=== PATIENT | male | born 1990 | race Caucasian/White ===

== ENCOUNTER 2018-03-03 13:54 | Emergency (ER) | payer SELFPAY ==
[2018-03-03] MEDS ORDERED: Cyclobenzaprine TAB* 10 MG PO ONE (14:56)
[2018-03-03] MEDS ORDERED: Ketorolac INJ* 60 MG/2 ML VIAL IM ONE (14:56)
--- NOTE | 2018-03-03 14:59 | ED ---
Back Pain - HPI Summary HPI Summary: Patient is a 27 y/o M w/ c/o lower back pain onsetting 1215 today. 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 Patient fell but did not experience head injury, LOC. No back pain prior to today, he did not urinate/have bowel movement during incident. Patient was able to ambulate. Patient reports pain is not severe. On triage, pain is rated 6/10 and nothing is noted to aggravate/alleviate Sx. - History of Current Complaint Chief Complaint: EDAssaulted Stated Complaint: BACK PAIN Time Seen by Provider: 03/03/18 14:41 Hx Obtained From: Patient Onset/Duration: Lasting Hours - onset 121, Still Present Onset/Duration: Started Hours Ago - onset 121 Timing: Constant Back Pain Location: Is Discrete @ - lower back Severity Currently: Moderate - 6/10 Pain Intensity: 6 Pain Scale Used: 0-10 Numeric - 6/10 Aggravating Symptom(s): Nothing Alleviating Symptom(s): Nothing Associated Signs And Symptoms: Positive: Other - NEGATIVE: LOC, head injury, inability to ambulate - Allergies/Home Medications Allergies/Adverse Reactions: Allergies Allergy/AdvReac Type Severity Reaction Status Date / Time No Known Allergies Allergy Verified 03/03/18 15:59 PMH/Surg Hx/FS Hx/Imm Hx Endocrine/Hematology History: Denies: Hx Diabetes Cardiovascular History: Denies: Hx Hypertension Infectious Disease History: No Infectious Disease History: Denies: Traveled Outside the [place] in Last 30 Days - Family History Known Family History: Negative: Hypertension, Diabetes - Social History Alcohol Use: Occasionally Substance Use Type: Reports: None Smoking Status (MU): Never Smoked Tobacco Review of Systems Positive: other - NEGATIVE: involuntary bowel movement or urination Positive: Other - lower back pain Neurological: Other - NEGATIVE: head injury, LOC All Other Systems Reviewed And Are Negative: Yes Physical Exam - Summary Physical Exam Summary: GENERAL: Patient is a well developed and nourished male who is lying comfortable in the stretcher. Patient is not in any acute respiratory distress. HEAD AND FACE: Normocephalic EYES: PERRLA, EOMI x 2. MOUTH: Oropharynx within normal limits. NECK: Supple, trachea is midline, no adenopathy, no JVD, no carotid bruit. CHEST: Symmetric, no tenderness at palpation LUNGS: Clear to auscultation bilaterally. No wheezing or crackles. CVS: Regular rate and rhythm, S1 and S2 present, no murmurs or gallops appreciated. ABDOMEN: Soft, non-tender. Bowel sounds are normal. No abdominal abnormal pulsations. Back: TTP along the paraspinal area in the LS region, 5/5 motor and 2/2 sensation in the lower EXTREMITIES: Full ROM in all major joints, no edema, no cyanosis or clubbing. NEURO: Alert and oriented x 3. No acute neurological deficits. Speech is normal and follows commands. SKIN: Dry and warm Triage Information Reviewed: Yes Vital Signs On Initial Exam: Initial Vitals Temp Pulse Resp BP Pulse Ox 97.7 F 99 14 145/89 94 03/03/18 14:07 03/03/18 14:07 03/03/18 14:07 03/03/18 14:07 03/03/18 14:07 Vital Signs Reviewed: Yes Diagnostics - Vital Signs Vital Signs Temp Pulse Resp BP Pulse Ox 03/03/18 14:07 97.7 F 99 14 145/89 94 - Laboratory Lab Statement: Any lab studies that have been ordered have been reviewed, and results considered in the medical decision making process. - Radiology Lumbar Spine X-Ray Xray Interpretation: Positive (See Comments) Radiology Interpretation Completed By: Radiologist - Right sided pars defect at L4 with mild facet osteoarthritis at L3-L4. This report was reviewed ED physician. Re-Evaluation - Re-Evaluation First Eval Re-Evaluation Time: 16:02 Comment: Discussed results of Lumbar Spine X-ray with patient. Patient will be discharged to home and follow up with PCP. He is hemodynamically stable upon discharge. Strict return precautions given and he will otherwise follow up with his PCP. Back Pain Course/Dx - Course Assessment/Plan: Patient is a 27 y/o M w/ c/o lower back pain onsetting 1215 today. 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 Patient fell but did not experience head injury, LOC. No back pain prior to today, he did not urinate/have bowel movement during incident. Patient was able to ambulate. Patient reports pain is not severe. Physical exam showed no abnormal findings. Lumbar spine X-ray showed Right sided pars defect at L4 with mild facet osteoarthritis at L3-L4. During ED course, patient was given Flexeril 10 mg PO ED ONCE ONE, Toradol 60 mg IM ONCE ONE. At 16:02, discussed results of x-ray. Patient will be discharged to home and follow up with PCP. He is hemodynamically stable upon discharge. Strict return precautions given and he will otherwise follow up with his PCP. He was diagnosed with lower back pain and degenerative disc disease. - Diagnoses Provider Diagnoses: Lower back pain, Degenerative disc disease Discharge - Sign-Out/Discharge Documenting (check all that apply): Patient Departure - discharge - Discharge Plan Condition: Stable Disposition: HOME Prescriptions: Cyclobenzaprine TAB* [Flexeril 10 MG TAB*] 10 mg PO TID #21 tab Ibuprofen 800 mg PO TID #21 tablet Patient Education Materials: Back Pain (ED), Degenerative Disc Disease (ED) Referrals: [facility] [Outside] - 2 Days Additional Instructions: Follow up with primary care physician in 1-2 days. Return to ED for any changing or worsening Sx. - Billing Disposition and Condition Condition: STABLE Disposition: Home - Attestation Statements Document Initiated by Mason: Yes Documenting Scribe: Ron Morocho Provider For Whom Mason is Documenting (Include Credential): Marilyn Carranza M.D. Scribe Attestation: Ron Hayden scribed for Marilyn Carranza M.D. on 03/04/18 at 1755. Scribe Documentation Reviewed: Yes Provider Attestation: The documentation as recorded by the Ron hansen accurately reflects the service I personally performed and the decisions made by Marilyn wallace M.D.
--- NOTE | 2018-03-03 15:38 | RAD ---
HISTORY: lower back pain COMPARISONS: None VIEWS: 5 , Frontal, lateral, coned-down lateral sacral, and bilateral oblique views of the lumbar spine. FINDINGS: ALIGNMENT: The alignment is normal. VERTEBRAL BODIES: There is a right-sided pars defect at L4. JOINTS: There is facet hypertrophy at L3-L4. INTERVERTEBRAL DISCS: The intervertebral disc heights are normal. SOFT TISSUE: Unremarkable. OTHER: The pelvis is unremarkable. The lung bases are clear. IMPRESSION: RIGHT-SIDED PARS DEFECT AT L4 WITH MILD FACET OSTEOARTHRITIS AT L3-L4.
[2018-03-03 16:23] VITALS: BP 138/83
== END 2018-03-03 16:21 | disposition home or self-care (01) ==
LOC: ED 13:54
DX: M51.36 Other intervertebral disc degeneration, lumbar region (principal)
CPT/HCPCS: 72110; 96372; 99282; A9270-GY; J1885

== ENCOUNTER 2018-09-27 13:00 | Emergency (ER) | payer BC, OTHER ==
[2018-09-27 15:17] VITALS: BP 111/63
--- NOTE | 2018-09-27 18:43 | ED ---
Upper Extremity Pain - HPI Summary HPI Summary: Patient is a 28-year-old male who presents emergency department for a left elbow injury that occurred today at work. 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 Patient denies head injury or any other injuries other than left elbow. Symptoms are mild in severity. Moving about makes symptoms worse. Rest makes symptoms better. No past medical history. Immunizations up-to-date. - History of Current Complaint Chief Complaint: EDExtremityUpper Stated Complaint: LEFT ELBOW INJURY PER PT Time Seen by Provider: 09/27/18 14:09 Hx Obtained From: Patient - Allergies/Home Medications Allergies/Adverse Reactions: Allergies Allergy/AdvReac Type Severity Reaction Status Date / Time bee venom protein (honey bee) Allergy Hives/Diff. Verified 09/27/18 13:14 Breathing/I tching Home Medications: Home Medications NK [No Home Medications Reported] 09/27/18 [History Confirmed 09/27/18] PMH/Surg Hx/FS Hx/Imm Hx Previously Healthy: Yes Endocrine/Hematology History: Denies: Hx Diabetes Cardiovascular History: Denies: Hx Hypertension Infectious Disease History: No Infectious Disease History: Denies: Traveled Outside the [place] in Last 30 Days - Family History Known Family History: Positive: Non-Contributory Negative: Hypertension, Diabetes - Social History Occupation: Employed Full-time Lives: With Family Alcohol Use: Occasionally Substance Use Type: Reports: None Smoking Status (MU): Never Smoked Tobacco Review of Systems Positive: Other - left elbow pain Positive: Other - small abrasion over left elbow Negative: Weakness, Paresthesia, Numbness All Other Systems Reviewed And Are Negative: Yes Physical Exam Triage Information Reviewed: Yes Vital Signs On Initial Exam: Initial Vitals Temp Pulse Resp BP Pulse Ox 97.6 F 83 16 124/81 94 09/27/18 13:11 09/27/18 13:11 09/27/18 13:11 09/27/18 13:11 09/27/18 13:11 Vital Signs Reviewed: Yes Appearance: Positive: Well-Appearing - Pt. sitting in chair in NAD. Coworker present. Skin: Positive: Warm, Dry Head/Face: Positive: Normal Head/Face Inspection Eyes: Positive: Normal, EOMI Neck: Positive: Supple Musculoskeletal: Positive: Other - Mild edema and pain noted over the lateral aspect of left elbow. Very small superficial overlying abrasion. Full ROM of elbow with mild pain. Good radial pulse. No proxiaml of distal injuries. Neurological: Positive: Normal, CN Intact II-III Psychiatric: Positive: Affect/Mood Appropriate Diagnostics - Vital Signs Vital Signs Temp Pulse Resp BP Pulse Ox 09/27/18 15:16 98.2 F 86 18 111/63 95 09/27/18 13:11 97.6 F 83 16 124/81 94 - Laboratory Lab Statement: Any lab studies that have been ordered have been reviewed, and results considered in the medical decision making process. Course/Dx - Course Course Of Treatment: Patient presenting for an isolated left elbow injury. X- rays per radiology negative for fracture dislocation. Advised patient ice and elevation and rest. Tylenol or Motrin for pain as directed. Follow up with orthopedics or Workmen's Compensation physician if pain persists. Patient understands and agrees with plan. - Diagnoses Differential Diagnosis/HQI/PQRI: Positive: Contusion, Fracture (Closed), Strain , Sprain Provider Diagnoses: Elbow contusion Discharge - Sign-Out/Discharge Documenting (check all that apply): Patient Departure Patient Received Moderate/Deep Sedation with Procedure: No - Discharge Plan Condition: Good Disposition: HOME Patient Education Materials: Elbow Sprain (ED) Referrals: Lucian Shoemaker MD [Medical Doctor] - Additional Instructions: Follow up with orthopedics if pain persist Ice and elevate Tylenol or Motrin for pain as directed Activity as tolerated Return to ER if symptoms change or worsen - Billing Disposition and Condition Condition: GOOD Disposition: Home - Attestation Statements Provider Attestation: I was available for consult. This patient was seen by the OBDULIO. The patient was not presented to, seen by, or examined by me. -Justin
== END 2018-09-27 15:16 | disposition home or self-care (01) ==
LOC: ED 13:00
DX: S50.312A Abrasion of left elbow, initial encounter (principal); S50.02XA Contusion of left elbow, initial encounter; W19.XXXA Unspecified fall, initial encounter; Y92.9 Unspecified place or not applicable
CPT/HCPCS: 99282